=== PATIENT | male | born 1955 | race Caucasian/White ===

== ENCOUNTER 2017-03-24 13:28 | Emergency (ER) | END 2017-03-24 15:13 | disposition home or self-care (01) | DX: R10.9 Unspecified abdominal pain (principal); N20.1 Calculus of ureter; I10 Essential (primary) hypertension; Z79.82 Long term (current) use of aspirin; Z79.84 Long term (current) use of oral hypoglycemic drugs; Z87.891 Personal history of nicotine dependence; Z98.61 Coronary angioplasty status | CPT/HCPCS: 36415; 74176; 80053; 83690; 85025; 99285; J7030 ==

== ENCOUNTER 2019-01-16 18:55 | Emergency (ER) | payer BC ==
[~2019-01-16] VITALS: Ht 172.7 cm; Wt 85.7 kg
[~2019-01-16 18:55] MED LIST: ASPI81TA52 PO; ATOR20TA38 PO; LISI40TA3 PO; METF500T3 PO; METO-336 PO; SITA100T11 PO
[2019-01-16 19:01] VITALS: RESP 18; Ht 172.7 cm; Wt 85.7 kg
[2019-01-16] MEDS ORDERED: HYDROCODONE/APAP (10/325) TAB PO ONE (20:30)
[2019-01-16] MEDS ORDERED: FLUORESCEIN STRIP BOTH EYES ONE (20:30)
[2019-01-16] MEDS ORDERED: TETRACAINE 0.5% 4 ML OPH BOTH EYES ONE (20:30)
--- NOTE | 2019-01-16 20:37 | ERD ---
ER Documentation Chief Complaint Chief Complaint pain/redness both eyes x 1 1/2 hour ago. states was going garden work HPI This is a 63-year-old male patient who presents to emergency room with complaint of pain and redness in both eyes after gardening and being exposed to the sap of [place]. Denies foreign body sensation, blurred vision, other symptoms. Patient was otherwise healthy and well-appearing prior to exposure. ROS All systems reviewed and are negative except as per history of present illness. Medications Home Meds Active Scripts Prednisolone Acetate* (Pred Mild*) 5 Ml Drops.susp, 1 DROP BOTH EYES BID for 3 Days, #5 ML Prov:LAQUITA CHOWDARY NP 01/16/19 Diphenhydramine Hcl* (Benadryl*) 25 Mg Cap, 25 MG PO Q6 for 3 Days, #9 CAP Prov:LAQUITA CHOWDARY NP 01/16/19 Ibuprofen* (Motrin*) 600 Mg Tab, 600 MG PO Q6, #30 TAB Prov:LAQUITA CHOWDARY NP 01/16/19 Hydrocodone/Acetaminophen ([place] 5-325 Tablet) 1 Each Tablet, 1 TAB PO Q6H PRN for PAIN, #7 TAB Prov:LAQUITA CHOWDARY NP 01/16/19 Reported Medications Metoprolol Succinate* (Toprol XL*) 100 Mg Tab.sr.24h, 100 MG PO DAILY, #30 TAB 04/21/16 Metformin Hcl* (Metformin Hcl* ER) 500 Mg Tab.sr.24h, 1000 MG PO WITH DINNER, #30 TAB 04/21/16 Lisinopril* (Lisinopril*) 40 Mg Tablet, 40 MG PO DAILY, #30 TAB 04/21/16 Aspirin (Low Dose Aspirin) 81 Mg Tablet.dr, 81 MG PO DAILY, #30 TAB 04/21/16 Sitagliptin* (Januvia*) 100 Mg Tablet, 100 MG PO DAILY, TAB 08/08/14 Atorvastatin Calcium* (Atorvastatin Calcium*) 20 Mg Tablet, 20 MG PO HS, TAB 08/08/14 Allergies Allergies: Coded Allergies: No Known Allergy (Unverified , 03/24/17) PMhx/Soc Medical and Surgical Hx: pt denies Surgical Hx History of Surgery: No Anesthesia Reaction: No Hx Neurological Disorder: No Hx Respiratory Disorders: No Hx Cardiac Disorders: Yes (DE, CARDIAC STENT, HTN) Hx Psychiatric Problems: No Hx Miscellaneous Medical Probl: Yes (ETOH, DRUG ABUSE) Hx Alcohol Use: Yes Hx Substance Use: Yes Hx Tobacco Use: No Smoking Status: Never smoker FmHx Family History: diabetes Physical Exam Vitals Vital Signs Date Temp Pulse Resp B/P (MAP) Pulse Ox O2 O2 Flow FiO2 Time Delivery Rate 01/16/19 74 137/89 22:22 (105) 01/16/19 98.3 84 18 136/72 99 19:01 (93) Physical Exam Const: No acute distress Head: Atraumatic Eyes: Normal Conjunctiva, PERRL, EOMI, conjunctiva of both eyes red and injected, no eyelid swelling, no periorbital edema or cellulitis ENT: Normal External Ears, Nose and Mouth. No redness, no lesions, no petechiae. Neck: Full range of motion. No meningismus. No lymphadenopathy Resp: Clear to auscultation bilaterally Cardio: Regular rate and rhythm, no murmurs Abd: Soft, non tender, non distended. Normal bowel sounds Skin: No petechiae or rashes on hands, face, forearms Back: No midline or flank tenderness Ext: No cyanosis, or edema Neur: Awake and alert Psych: Normal Mood and Affect Results 24 hrs Current Medications Medications Dose Sig/Liliane Start Time Status Last (Trade) Ordered Route PRN Stop Time Admin Dose Reason Admin 1 tab ONCE ONCE 01/16/19 DC 01/16/19 Acetaminophen PO 20:30 01/16/19 20:47 / 20:31 Hydrocodone Bitart ([place] (10/325)) Fluorescein 1 strip ONCE ONCE 01/16/19 DC Sodium BOTH EYES 20:30 01/16/19 (Kyiry-M-Uddz 20:31 p) Tetracaine 1 drop ONCE ONCE 01/16/19 DC HCl BOTH EYES 20:30 01/16/19 (Tetracaine 20:31 0.5% Steri-Unit Robyn) 50 mg ONCE ONCE 01/16/19 DC 01/16/19 Diphenhydrami PO 22:30 01/16/19 22:18 ne HCl 22:30 (Benadryl) Procedures/MDM This is a 63-year-old male patient presents the emergency room with pain and redness in both eyes after exposure to stop of plant in his garden. Poison Control Center contacted for advice ED COURSE: The patient was stable throughout ED course. PROCEDURES: Tonometry OD: 18 mmHg OS: 15 mmHg Visual Acuity Pre-irrigation OD: 20/50 OS: 20/40 OU: 20/40 Fluorescein Negative for corneal ulcer, corneal abrasion, foreign body MEDICATIONS GIVEN: [place], tetracaine Patient tolerated medication well with no adverse reactions. Patient reported improvement in pain. MDM: Post irrigation patient sitting with both eyes open, no blurred vision, states pain in the eyes has improved. Patient states he has electrolysist he will be able to follow-up with tomorrow. Patient given strict ER return precautions. Ophthalmologic Assessment: Patient's ocular symptoms have stabilized while they have been evaluated in the department and are appropriate for outpatient work up. No evidence of ruptured globe, retinal detachment, acute angle closure glaucoma, or deep space infection Plan for 24 hour ophthalmologic follow up. Instructions provided on self-care including cool soaks, oatmeal bath, topical solutions such as Caladryl, hydrocortisone, and benadryl. Instructions provided on s/sx of worsening of condition including anaphylaxis and when to seek emergent medical treatment. Patient instructed to follow-up with primary provider in 2-3 days for reevaluation. DISPOSITION: The patient has been discharge home to follow-up with community physician. Departure Diagnosis: Primary Impression: Chemical conjunctivitis of both eyes Condition: Stable Patient Instructions: Conjunctivitis Caused by Irritation Referrals: [facility] Additional Instructions: Thank you very much for allowing us to participate in your care. Your health and safety is our top priority at [facility]. Call your primary care doctor TOMORROW for an appointment during the next 2-4 days and bring all the information and medications prescribed. Have prescriptions filled and follow precisely the directions on the label. If the symptoms get worse and your provider is unavailable, return to the Emergency Department immediately. PROVIDE THE FOLLOWING INFORMATION TO YOUR BODY LINER 01/16/19: CHEMICAL CONJUNCTIVITIS DUE TO EXPOSURE TO [place] GRANTII COPIOUS EYE IRRIGATION WITH NS Tonometry OD: 18 mmHg OS: 15 mmHg Visual Acuity OD: 20/50 OS: 20/40 OU: 20/40 Fluorescein Negative for corneal ulcer, corneal abrasion, foreign body LAQUITA CHOWDARY NP January 16, 2019 20:37
[2019-01-16 22:22] VITALS: BP 137/89; PULSE 74
[2019-01-16] MEDS ORDERED: IBUP-1542 PO (22:25)
[2019-01-16] MEDS ORDERED: PRED12OP5 BOTH EYES (22:25)
[2019-01-16] MEDS ORDERED: BEN25 PO (22:25)
[2019-01-16] MEDS ORDERED: HYDR-4011 PO (22:25)
[2019-01-16] MEDS ORDERED: DIPHENHYDRAMINE 50 MG CAP PO ONE (22:30)
== END 2019-01-16 22:30 | disposition home or self-care (01) ==
LOC: FTE 18:55
DX: T65.891A Toxic effect of other specified substances, accidental (unintentional), initial encounter (principal); H10.213 Acute toxic conjunctivitis, bilateral; I10 Essential (primary) hypertension; I25.2 Old myocardial infarction; E11.9 Type 2 diabetes mellitus without complications; Z79.82 Long term (current) use of aspirin; Z79.84 Long term (current) use of oral hypoglycemic drugs; Z98.61 Coronary angioplasty status
CPT/HCPCS: 99283